=== PATIENT | female | born 1970 | race Caucasian/White ===

== ENCOUNTER 2017-07-06 00:57 | Emergency (ER) | payer MEDICAID ==
[~2017-07-06] VITALS: Ht 154.9 cm; Wt 65.9 kg
[~2017-07-06 00:57] MED LIST: CIPR500T4 PO; HYDR-762 PO; IBUP-1542 PO; NAPR-260 PO
[2017-07-06 01:11] VITALS: Ht 154.9 cm; Wt 65.9 kg
[2017-07-06] MEDS ORDERED: ONDANSETRON 4 MG INJ IV STA (02:37)
[2017-07-06] MEDS ORDERED: FAMOTIDINE 20 MG INJ IV STA (02:37)
[2017-07-06] MEDS ORDERED: SOD CHLORIDE 0.9% 1,000 ML IV STA (02:37)
[2017-07-06] MEDS ORDERED: KETOROLAC 30 MG INJ IV STA (02:37)
[2017-07-06 03:18] LABS: BASOPHILS % 0.3 % (0.0-2.0); EOSINOPHILS # 0.3 10^3/ul (0.0-0.5); EOSINOPHILS % 4.1 % (0.0-7.0); HEMATOCRIT 31.7 % (37.0-47.0); HEMOGLOBIN 10.5 g/dl (12.0-16.0); LYMPHOCYTES # 2.2 10^3/ul (0.8-2.9); MEAN CORPUSCULAR HEMOGLOBIN 27.6 pg (29.0-33.0); MEAN CORPUSCULAR HGB CONC 33.1 g/dl (32.0-37.0); MEAN CORPUSCULAR VOLUME 83.4 fl (82.0-101.0); MEAN PLATELET VOLUME 9.4 fl (7.4-10.4); MONOCYTE # 0.7 10^3/ul (0.3-0.9); MONOCYTES % 10.7 % (0.0-11.0); NEUTROPHILS % 48.7 % (39.0-77.0); PLATELET COUNT 253 10^3/UL (140-415); RED CELL DISTRIBUTION WIDTH 14.3 % (11.5-14.5); WHITE BLOOD COUNT 6.1 10^3/ul (4.8-10.8)
[2017-07-06 03:46] LABS: ADD UMIC YES; UR ASCORBIC ACID NEGATIVE (NEGATIVE); UR BILIRUBIN (Dip) NEGATIVE (NEGATIVE); UR BLOOD (Dip) 1+ mg/dL (NEGATIVE); UR CLARITY CLEAR (CLEAR); UR COLOR YELLOW (YELLOW); UR GLUCOSE (Dip) NEGATIVE (NEGATIVE); UR KETONES (Dip) NEGATIVE (NEGATIVE); UR LEUKOCYTE ESTERASE (Dip) 1+ Leu/ul (NEGATIVE); UR MUCUS FEW /HPF (NONE SEEN); UR NITRITE (Dip) NEGATIVE (NEGATIVE); UR RBC 1 /HPF (0-5); UR SPECIFIC GRAVITY (Dip) 1.024 (1.003-1.030); UR SQUAMOUS EPITHELIAL CELL FEW /HPF (FEW); UR TOTAL PROTEIN (Dip) NEGATIVE (NEGATIVE); UR UROBILINOGEN (Dip) NEGATIVE (NEGATIVE)
[2017-07-06 04:03] LABS: ALBUMIN 3.8 g/dl (3.3-4.9); ALBUMIN/GLOBULIN RATIO 1.18; BILIRUBIN,INDIRECT 0.4 mg/dl (0-1.1); BILIRUBIN,TOTAL 0.4 mg/dl (0.2-1.3); CALCIUM 8.9 mg/dl (8.4-10.2); CREATININE 0.69 mg/dl (0.44-1.00); POTASSIUM 3.7 mmol/L (3.5-5.1)
--- NOTE | 2017-07-06 04:16 | ERD ---
ER Documentation Chief Complaint Date/Time DATE: 07/06/17 TIME: 04:15 Chief Complaint ap and distention today. last bm today states normal. HPI This is a 46-year-old female presents to the ER for evaluation of abdominal pain. The patient states she has had abdominal pain for 24 hours and states that he has improved slightly since she has been in the ER. She states that his worse with urination, she denies any blood in the urine. The patient denies any nausea or vomiting at this time and states that her bowel movements have been normal. She localizes the pain to the lower portion of the abdomen and describes as an achy pain ROS All systems reviewed and are negative except as per history of present illness. Medications Home Meds Active Scripts Naproxen* (Naprosyn*) 500 Mg Tablet, 500 MG PO BID Y for PAIN AND/OR INFLAMMATION, #30 TAB Prov:OZZY FRANK PA-C 06/28/16 Ciprofloxacin Hcl* (Ciprofloxacin Hcl*) 500 Mg Tablet, 500 MG PO BID for 7 Days , TAB Prov:OZZY FRANK PA-C 06/28/16 Ibuprofen* (Motrin*) 600 Mg Tab, 600 MG PO Q6H Y for PAIN AND OR ELEVATED TEMP, #30 TAB Prov:MANJIT SUÁREZ [employer]PERATOR 12/21/15 Hydrocodone Bit-Acetaminophen* ([place]*) 10-325 Mg Tablet, 1 TAB PO Q6 Y for PAIN , #20 TAB Prov:MANJIT SUÁREZ. [employer] GRINDER OPERATOR 12/21/15 Hydrocodone Bit-Acetaminophen* ([place]*) 10-325 Mg Tablet, 1 TAB PO Q6 Y for PAIN , #20 TAB Prov:HANS MOLINA 04/01/15 Reported Medications [none] No Conflict Check 12/21/15 Allergies Allergies: Coded Allergies: No Known Drug Allergy (Verified Allergy, Mild, 07/02/14) PMhx/Soc History of Surgery: Yes (Cholecystectomy) Anesthesia Reaction: No Hx Neurological Disorder: No Hx Respiratory Disorders: No Hx Cardiac Disorders: No Hx Psychiatric Problems: No Hx Miscellaneous Medical Probl: Yes (UTIs,Colitis) Hx Alcohol Use: Yes (Former drinker) Hx Substance Use: Yes (Former user) Hx Tobacco Use: No Smoking Status: Unknown if ever smoked Physical Exam Vitals Vital Signs Date Time Temp Pulse Resp B/P Pulse Ox O2 Delivery O2 Flow Rate FiO2 07/06/17 01:11 97.2 72 20 124/74 98 Physical Exam Const: No acute distress Head: Atraumatic Eyes: Normal Conjunctiva ENT: Normal External Ears, Nose and Mouth. Neck: Full range of motion..~ No meningismus. Resp: Clear to auscultation bilaterally Cardio: Regular rate and rhythm, no murmurs Abd: Soft, non tender, non distended. Normal bowel sounds Skin: No petechiae or rashes Back: No midline or flank tenderness Ext: No cyanosis, or edema Neur: Awake and alert Psych: Normal Mood and Affect Result Diagram: 07/06/1724407/06/17244 Results 24 hrs Laboratory Tests Test 07/06/17 02:45 White Blood Count 6.110^3/ul Red Blood Count 3.8010^6/ul Hemoglobin 10.5g/dl Hematocrit 31.7% Mean Corpuscular Volume 83.4fl Mean Corpuscular Hemoglobin 27.6pg Mean Corpuscular Hemoglobin Concent 33.1g/dl Red Cell Distribution Width 14.3% Platelet Count 36602^3/UL Mean Platelet Volume 9.4fl Neutrophils % 48.7% Lymphocytes % 36.0% Monocytes % 10.7% Eosinophils % 4.1% Basophils % 0.3% Nucleated Red Blood Cells % 0.0/100WBC Neutrophils # 3.010^3/ul Lymphocytes # 2.210^3/ul Monocytes # 0.710^3/ul Eosinophils # 0.310^3/ul Basophils # 0.010^3/ul Nucleated Red Blood Cells # 0.010^3/ul Urine Color YELLOW Urine Clarity CLEAR Urine pH 5.0 Urine Specific [place] 1.024 Urine Ketones NEGATIVEmg/dL Urine Nitrite NEGATIVEmg/dL Urine Bilirubin NEGATIVEmg/dL Urine Urobilinogen NEGATIVEmg/dL Urine Leukocyte Esterase 1+Ranulfo/ul Urine Microscopic RBC 1/HPF Urine Microscopic WBC 2/HPF Urine Squamous Epithelial Cells FEW/HPF Urine Mucus FEW/HPF Urine Hemoglobin 1+mg/dL Urine Glucose NEGATIVEmg/dL Urine Total Protein NEGATIVEmg/dl Sodium Level 140mmol/L Potassium Level 3.7mmol/L Chloride Level 106mmol/L Carbon Dioxide Level 27mmol/L Anion Gap 11 Blood Urea Nitrogen 12mg/dl Creatinine 0.69mg/dl Glucose Level 98mg/dl Calcium Level 8.9mg/dl Total Bilirubin 0.4mg/dl Direct Bilirubin 0.00mg/dl Indirect Bilirubin 0.4mg/dl Aspartate Amino Transf (AST/SGOT) 20IU/L Alanine Aminotransferase (ALT/SGPT) 33IU/L Alkaline Phosphatase 49IU/L Total Protein 7.0g/dl Albumin 3.8g/dl Globulin 3.20g/dl Albumin/Globulin Ratio 1.18 Lipase 88U/L Current Medications Medications (Trade) Dose Ordered Sig/Juan Manuel Route PRN Reason Start Time Stop Time Status Last Admin Dose Admin Sodium Chloride (NS) 1,000 ml @ 1,000 mls/hr Q1H STAT IV 07/06/17 02:37 07/06/17 03:36 DC 07/06/17 02:50 Ondansetron HCl (Zofran Inj) 4 mg ONCE STAT IV 07/06/17 02:37 07/06/17 02:38 DC 07/06/17 02:52 Famotidine (Pepcid Iv) 20 mg ONCE STAT IV 07/06/17 02:37 07/06/17 02:38 DC 07/06/17 02:52 Ketorolac Tromethamine (Toradol) 30 mg ONCE STAT IV 07/06/17 02:37 07/06/17 02:38 DC 07/06/17 02:53 Procedures/MDM This 46-year-old female presents to the ER for evaluation of abdominal pain mild painful urination. The patient did have lab work drawn in the ER which is within normal limits. UA does show 1+ leukocyte esterase however given her symptoms the patient was given Cipro in the ER will be discharged home with a prescription for ofloxacin. She is afebrile, hemodynamically stable and nontoxic appearing at this time. Departure Diagnosis: Primary Impression: UTI (urinary tract infection) Additional Impression: Abdominal pain Condition: Stable CARI LUIS DO Jul 06, 2017 04:16
[2017-07-06] MEDS ORDERED: CIPR500T4 PO (04:17)
[2017-07-06 04:30] VITALS: BP 111/53; PULSE 53; RESP 18; TEMP 97.2
[2017-07-06] MEDS ORDERED: CIPROFLOXACIN 500 MG TAB ONE (04:47)
== END 2017-07-06 04:35 | disposition home or self-care (01) ==
LOC: E/R 00:57
DX: N39.0 Urinary tract infection, site not specified (principal)
CPT/HCPCS: 36415; 80053; 81001; 83690; 85025; 96361; 96374; 96375; J1885; J2405; J7030; Z7502; Z7610

== ENCOUNTER 2017-10-03 23:18 | Emergency (ER) | END 2017-10-04 03:18 | disposition home or self-care (01) ==

== ENCOUNTER 2018-05-06 21:56 | Emergency (ER) | END 2018-05-07 04:12 | disposition home or self-care (01) ==